=== PATIENT | female | born 1995 | race Caucasian/White ===

== ENCOUNTER 2016-07-30 14:55 | Emergency (ER) | payer BC, OTHER ==
[~2016-07-30] VITALS: Ht 157.5 cm; Wt 61.1 kg
[2016-07-30 15:00] VITALS: TEMP 36.4; Ht 157.5 cm; Wt 61.1 kg
[2016-07-30] MEDS ORDERED: PHEN37.585 PO (15:37)
[2016-07-30] MEDS ORDERED: IBUP-1050 PO (15:37)
[2016-07-30 16:11] LABS: URINE APPEARANCE CLEAR (CLEAR); URINE BILIRUBIN NEG (NEG); URINE COLOR YELLOW; URINE EPITHELIAL CELL AUTO >30 /lpf (0-5); URINE NITRITE NEG (NEG); URINE SPECIFIC GRAVITY 1.003 (1.000-1.030); UROBILINOGEN NEG (NEG); ZZUR CULT IF INDIC CLEAN CATCH NO
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
[2016-07-30 16:15] LABS: MANUAL MICROSCOPIC REQUIRED? NO; REVIEW REQ? YES
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
[2016-07-30 17:17] VITALS: BP 107/64; PULSE 98; O2SAT 100
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
== END 2016-07-30 17:18 | disposition home or self-care (01) ==
LOC: C.EDB 14:55 → C.EDD 17:18
DX: M54.2 Cervicalgia (principal); R07.9 Chest pain, unspecified; V43.12XA Car passenger injured in collision with other type car in nontraffic accident, initial encounter; Z80.9 Family history of malignant neoplasm, unspecified